=== PATIENT | female | born 1985 | race Native Hawaiian/Other Pacific Islander ===

== ENCOUNTER 2021-03-12 09:39 | Outpatient (CLI) | payer OTHER | END 2021-03-12 20:42 | disposition home or self-care (01) | LOC: US 09:39 | PROVIDERS: ATTEND Nurse Practitioner Family | DX: R10.11 Right upper quadrant pain (principal) ==

== ENCOUNTER 2021-03-24 01:22 | Emergency (ER) | payer OTHER ==
[~2021-03-24] VITALS: Ht 152.4 cm; Wt 77.1 kg
[2021-03-24 02:26] LABS: PLATELET COUNT 233 K/uL (152-353)
[2021-03-24 03:30] VITALS: BP 117/68; TEMP 98.6
== END 2021-03-24 03:37 | disposition home or self-care (01) ==
LOC: ED 01:22
PROVIDERS: Hospitalist
DX: R10.84 Generalized abdominal pain (principal); K82.8 Other specified diseases of gallbladder; Z79.2 Long term (current) use of antibiotics
CPT/HCPCS: 36415; 80053; 82150; 83690; 85027; 96360; 96374; 96375; 99284; J1885; J2405